=== PATIENT | female | born 1975 | race Hispanic/Latino ===

== ENCOUNTER 2018-09-07 04:33 | Emergency (ER) | payer OTHER ==
[2018-09-07] MEDS ORDERED: ONDANSETRON HCL 4 MG/2 ML VIAL ONE (05:19)
[2018-09-07] MEDS ORDERED: KETOROLAC TROMETHAMINE 30MG/ML ONE (05:19)
[2018-09-07 05:39] LABS: APPEARANCE,URINE Cloudy (CLEAR); BILIRUBIN,URINE Negative (NEGATIVE); COLOR,URINE Yellow (YELLOW); GLUCOSE, URINE (UA) Negative (NEGATIVE); KETONES,URINE >=80 mg/dL (NEGATIVE); LEUKOCYTE ESTERASE ,URINE Trace (NEGATIVE); NITRATE,URINE Negative (NEGATIVE); OCCULT BLOOD,URINE Large (NEGATIVE); PH,URINE 6.5 (5.0-8.0); PROTEIN,URINE Negative (NEGATIVE)
[2018-09-07 05:43] LABS: BASOPHILS % (AUTO) 0.6 % (0.0-5.0); EOSINOPHILS % (AUTO) 2.2 % (0.0-8.0); LYMPHOCYTES % (AUTO) 23.9 % (21.0-51.0); MEAN CORPUSCULAR HEMOGLOBIN 27.5 pg (27.0-33.0); MEAN CORPUSCULAR HGB CONC 33.6 g/dL (32.0-36.0); MEAN CORPUSCULAR VOLUME 82.1 fL (79-99); MONOCYTES % (AUTO) 5.9 % (3.0-13.0); NEUTROPHILS % (AUTO) 67.4 % (40.0-77.0); NUCLEATED RED BLOOD CELLS 0.1 % (0.0-0.19); PLATELET COUNT (AUTO) 229 K/uL (130-400); RED BLOOD CELL COUNT(AUTO) 4.87 MIL/uL (4.00-5.50); RED CELL DISTRIBUTION WIDTH 15.2 % (11.0-15.5); WHITE BLOOD COUNT (AUTO) 9.2 K/uL (4.8-10.8)
[2018-09-07 05:50] LABS: CREATININE 0.6 mg/dL (0.5-1.5); POTASSIUM 3.6 mmol/L (3.5-5.1)
[2018-09-07 05:56] LABS: BACTERIA,URINE Moderate /HPF (None Seen); RBC,URINE 51-100 /HPF (0-1)
[2018-09-07] MEDS ORDERED: MORPHINE SULFATE 4 MG/1ML SYG ONE ×2 (06:14→08:07)
== END 2018-09-07 09:58 | disposition home or self-care (01) ==
LOC: EDH 04:33
DX: N13.2 Hydronephrosis with renal and ureteral calculous obstruction (principal); N30.00 Acute cystitis without hematuria; Z88.0 Allergy status to penicillin; Z91.018 Allergy to other foods; Z90.710 Acquired absence of both cervix and uterus; Z90.49 Acquired absence of other specified parts of digestive tract; Z98.890 Other specified postprocedural states; Z79.899 Other long term (current) drug therapy
CPT/HCPCS: 36415; 74176; 80048; 81001; 85025; 96365; 96375; 96376; 99285; J1885; J2270 ×2; J2405